=== PATIENT | female | born 1945 | race Caucasian/White ===

== ENCOUNTER 2016-09-11 11:49 | Day surgery (SDC) | payer MEDICARE ==
--- NOTE | 2016-09-07 17:52 | PCM.ANEPRE ---
Anesthesia Pre-Op Review Reason for Review: SURGEON'S REQUEST-AORTIC INSUFFICIENCY and MODERATE Anesthesia Recommendations: Proceed with Procedure Additional Comments 71 yo woman for with hx of (Moderate) and AR (moderately severe)on echo 2015, one year ago. EF 60-65%. Few symptoms of or AR, and METs >4 limited only by prior lung resection. Active. Ok to proceed for low risk case with usual DOS evaluation for any new symptoms. Chart Reviewed by: Joselito Lopez MD, MD Sep 07, 2016 17:52
[~2016-09-11] VITALS: Ht 160 cm; Wt 67.7 kg
[~2016-09-11 11:49] MED LIST: ASPI-973 PO; ATEN50TA PO; BUPR150T9 PO; CYAN25003 SL; Dexamethasone 4 mg/mL Inj IVPUSH PRN; EPHEDrine Sulfate 50 mg/mL Inj IVPUSH PRN; FLUT9.9S NS; FOLI0.4T2 PO; GEMF600T3 PO; HYDROmorphone 1 mg/mL Inj IVPUSH PRN; LEVO50TA6 PO; LOVA40TA PO; Labetalol 5 mg/mL 4 mL Inj IV PRN; Lactated Ringer's 1,000 ML IV ONE; Lactated Ringer's 1,000 ML IV SCH; Lactated Ringer's 500 ML IV PRN; MAGN400T23 PO; MetoCLOpramide 5 mg/mL 2 mL Inj IVPUSH PRN; Ondansetron 2 mg/mL 2 mL Inj IVPUSH PRN; Phenylephrine 10,000 mCg/mL Inj IVPUSH PRN; fentaNYL-PF 50 mCg/mL 2 mL Inj IVPUSH PRN; hydrALAZINE 20 mg/mL Inj IVPUSH PRN
[2016-09-11] MEDS ORDERED: Ondansetron 2 mg/mL 2 mL Inj ONE (11:50)
[2016-09-11] MEDS ORDERED: Propofol 10 mg/mL 20 mL Inj ONE (11:50)
[2016-09-11] MEDS ORDERED: Lidocaine PF 1% 30 mL Inj ONE (11:50)
[2016-09-11] MEDS ORDERED: Ketamine 10 mg/mL 20 mL Inj ONE (11:50)
[2016-09-11] MEDS ORDERED: EPHEDrine/NS 5 mg/mL 5 mL Syringe ONE (11:50)
[2016-09-11] MEDS ORDERED: fentaNYL-PF 50 mCg/mL 2 mL Inj ONE (11:50)
[2016-09-11 12:22] VITALS: BP 166/47; PULSE 60; RESP 16; O2SAT 99
[2016-09-11] MEDS ORDERED: CeFAZolin Inj 2 gm / 50mL D5W IV ONE (12:58)
[2016-09-11] MEDS ORDERED: Acetaminophen IV 1,000 MG in IV Premix 1 EACH IV ONE (13:02)
[2016-09-11] MEDS ORDERED: CeFAZolin Inj 2 GM in IV Premix 1 EACH IV ONE (13:05)
--- NOTE | 2016-09-11 14:26 | PCM.HPANE ---
Patient Data Date of Service: Sep 11, 2016 Surgeon Admitting Provider: Attending Provider:Kimberly Miller MD Primary Care Physician:Bret Perea MD Other Provider:Andrew Long Anesthesia Reason for Visit Hematuria Ht/WT & BMI Height (Feet): 5 Height (Inches): 3 Weight (Kilograms): 67.7 Body Mass Index 26.00 Allergies Coded Allergies: Penicillins (Verified Allergy, Unknown, UNKNOWN, 09/11/16) Past Anesthesia History Anesthesia History: Denies:: Anesthesia Reactions, Malignant Hyperthermia Diabetes History Hx Diabetes?: No MRSA MRSA: No Medications Blood Thinner: Aspirin Home Meds Incl Beta Miguel Ángel: No Reported Medications Fluticasone Propionate (Flonase Allergy Relief)50 Mcg/Actuation [place].susp9.9 Ml NS DAILY 09/07/16 Gemfibrozil 600 Mg Iefhhu359 Mg PO BID #60 TABLET 09/07/16 Aspirin 81 Mg [place]87 Mg PO DAILY Ref 0 09/07/16 Cyanocobalamin (Vitamin B-12) (Vitamin B-12)2,500 Mcg Tab.subl2,500 Mcg SL HS 07/15/15 Folic Acid 0.4 Mg Tablet0.4 Mg PO HS 07/15/15 Gemfibrozil 600 Mg Rmyxol655 Mg PO HS #60 TABLET 07/15/15 Levothyroxine 50 Mcg Btxpnr97 Mcg PO HS Ref 0 06/28/15 Magnesium Oxide (Mag-Oxide)400 Mg Ufsohj158 Mg PO HS 06/28/15 Lovastatin 40 Mg Hnfogn76 Mg PO HS Ref 0 06/28/15 Bupropion HCl (Zyban)150 Mg Tablet.er150 Mg PO HS 06/28/15 Atenolol 50 Mg Eyzmgh12 Mg PO HS Ref 0 06/28/15 Discontinued Reported Medications Ranitidine 150 Mg Vqxddol532 Mg PO HS Ref 0 07/15/15 Promethazine 25 Mg Rsqjjn81.5 Mg PO Q6H PRN For Nausea Ref 0 06/28/15 Ondansetron 8 Mg Tablet8 Mg PO TID PRN For Nausea 06/28/15 History History of ENT Problems?: Yes HEENT History: Positive for:: Cataracts (S/P EXTRACTIONS) Hx of Heart Problems?: Yes Cardiovascular History: Positive for:: Chest Pain (R/T DYSPNEA & PNEUMONIA) Heart Murmur (GR I-II/ SYST;GR III/ FLOW @ [facility] ECHO 08/2015 EF 60-65%) Hypertension (HYPERLIPIDEMIA) Valvular Heart Disease (MOD /AR) Denies:: Cardiac Surgery Congestive Heart Failure Edema Irregular Heartbeat (REPORTS PALPITATIONS) Pacemaker Thrombophlebitis Hx of Respiratory Problem?: Yes Respiratory History: Positive for:: Dyspnea (INTERMITTANT SOTO) Pneumonia (HX OF) Denies:: Chest Surgery (DX W/ LUNG CA-RECEIVED CHEMO) Use of C-PAP Machine Hx Neurologic Problems?: No Hx of GI Problems?: Yes Gastrointestinal History: Positive for:: Gall Bladder Disease (S/P CORAL) Gastroesphageal Reflux Heartburn Other GI Pertinent History: S/P APPY Hx of Problems?: Yes Genitourinary History: Denies:: HX of Hemodialysis (CHRONIC RENAL INSUFFICIENCY, STAGE 3) Other Pertinent History: HEMATURIA=CURRENT PROBLEM Female Hx: Denies:: Currently Endometriosis Pelvic Inflammatory Problems with Breasts? Skin History: Positive for:: History Skin Disorders? (HX ROSACEA) Denies:: Pressure Ulcers Hx Musculoskeletal Problems?: No Hx of Psycho/Social Problems?: Yes Psycho Social History: Positive for:: Anxiety Hx Depression Denies:: Bipolar Disorder Hx Surgeries?: Yes (coral, hysterectomy,APPY,CATARACTS) Hx Any Other Health Problems?: Yes Other History: Positive for:: Cancer (LUNG CA) Thyroid Disease Denies:: Endocrine Disease Hospitalization History Blood Transfusions: Positive for:: Blood Transfusions Denies:: Blood Transfuse Reaction Hx Diabetes: No Hx Alcohol Use: No (HX OF BINGE DRINKING)Hx Substance Use: No Smoking Status: Former Smoker Have You Smoked inLast 12 mo: YesApprox How Many Cigarettes/day: 30+YR HX Stop/Bang S-Snoring: Do You Snore Loudly: No T-Tired: feel tired, fatigued: No O-Obsered: Observed not breath: No P-Blood Pressure: treated: Yes B- Body Mass Index > 35 kg/m2: No A- Age over 50: Yes N- Neck Large Circumference: No G- Gender Male: No RODOLFO Total Score: 2 RODOLFO Risk Assessment: Low Risk, <3 Yes Risk Assessment Category Category 1A: Patient has history of documented sleep apnea, and HAS NOT received any narcotic, sedative or anesthesia administration during this stay. Category 1B: Patient has history of documented sleep apnea, and HAS received any narcotic , sedative or anesthesia administration during this stay Category 2: Patient has SUSPECTED Obstructive Sleep Apnea, and HAS received any narcotic , sedative or anesthesia administration during this stay. Category 3: Patient has SUSPECTED Obstructive Sleep Apnea and HAS NOT received narcotic, sedative or anesthesia administration during this stay. Category 4: Outpatient in Procedural Areas with known sleep apnea or who screen positive for High Risk via the STOP/BANG questionnaire. Exam Exam Vital Signs Vital Signs Date Time Temp Pulse Resp B/P Pulse Ox O2 Delivery O2 Flow Rate FiO2 09/11/16 12:22 35.8 60 16 166/47 99 Room Air General Appearance: Alert, Oriented X3, Cooperative, No Acute Distress HEENT/AIRWAY: MP 2 Lungs: Clear to Auscultation, Normal Air Movement Heart: Regular Rate/Rhythm, Murmur Additional Information Moderate and moderate to severe AI, denies CP or SOB Meds/Labs/Diagnostics Admission Meds Current Medications Lactated Ringer's (Lr) 1,000 ml @ 120 mls/hr Q8H20M ONCE IV Last administered on 09/11/16t 11:54; Start 09/11/16 at 05:00; Stop 09/11/16 at 13:19; Status DC Plan Impression Patient chart reviewed, patient interviewed and anesthestic plan with risks, benefits, and alternatives discussed, and informed consent obtained. NPO Status: MIDNIGHT ASA Physical Status: ASA3 Severe Disease Anesthetic Plan: GA Bene/Risks/Altern/Consents: Yes HP Complete Prior to Induction: Yes Ranulfo Flaherty MD Sep 11, 2016 14:26
[2016-09-11 14:50] VITALS: BP 109/47; PULSE 64; RESP 10; O2SAT 95
[2016-09-11 14:55] VITALS: BP 111/45; PULSE 61; RESP 12; O2SAT 95
--- NOTE | 2016-09-11 14:57 | DRSVH ---
PROCEDURE: X-RAY RETROGRADE UROGRAPHY INDICATIONS: LEFT RETROGRADE PYELOGRAM IN SURGERY TECHNIQUE: 2 intra-operative images acquired by the Urology service. COMPARISON: [facility], CT, CT CHEST WO CON, 05/02/2016, 11:54. [facility], CT, CT CHEST ABD PELVIS WO CON, 10/14/2015, 13:33. FINDINGS: Limited examination demonstrates opacification of the left renal collecting system with a minimal degree of hydronephrosis. No intraluminal filling defects are seen. No extravasation. IMPRESSION: Intraoperative opacification of the left renal collecting system with hydronephrosis. Dictated by: Ray SAUCEDO Interpreted: Dottie Jaime MD on 09/11/2016 at 14:56 Transcribed by: IVELISSE on 09/11/2016 at 14:57 Approved by: Dottie Jaime M.D. on 09/12/2016 at 10:43
[2016-09-11 15:00] VITALS: BP 108/48; PULSE 61; RESP 14; O2SAT 95
--- NOTE | 2016-09-11 15:03 | DRSVH ---
PROCEDURE: X-RAY RETROGRADE UROGRAPHY INDICATIONS: RIGHT RETROGRADE PYELOGRAM IN SURGERY TECHNIQUE: 2 intra-operative images acquired by the Urology service. COMPARISON: None. FINDINGS: Limited exam demonstrates incomplete filling of the distal aspects of the renal calyces ot herwise the right renal collecting system is grossly normal. There is a small rounded intraluminal f illing defect seen within the renal pelvis which may represent gas bubble. Correlate with real-time examination. Visualized portion of the proximal ureter appears grossly normal. IMPRESSION: Small intraluminal filling defect within the renal pelvis which may represent a small gas bubble. Correlate with real-time examination. Dictated by: Ray Zamudio [facility] Interpreted: Tabby Huitron MD on 09/11/2016 at 15:02 Transcribed by: SETH on 09/11/2016 at 15:03 Approved by: Tabby Huitron MD, PhD on 09/11/2016 at 18:06
[2016-09-11 15:12] VITALS: BP 113/44; PULSE 60; RESP 16; O2SAT 95
[2016-09-11 15:32] VITALS: BP 128/43; PULSE 61; RESP 16; O2SAT 95
--- NOTE | 2016-09-11 21:11 | OP ---
[address] [address] OPERATIVE REPORT PATIENT: ZANA BISWAS : 1945 MR#: [id number] ADMIT: 09/11/2016 JOB ID: [id number] DATE OF SURGERY: 09/11/2016 SURGEON: Kimberly Miller MD PREOPERATIVE DIAGNOSIS(ES): 1. Microscopic hematuria. 2. Chronic kidney disease POSTOPERATIVE DIAGNOSIS(ES): 1. Microscopic hematuria. 2. Chronic kidney disease OPERATION PERFORMED: 1. Cystoscopy. 2. Bilateral retrograde pyelograms. ANESTHESIOLOGIST: Eusebio Flaherty MD ANESTHESIA: General. FINDINGS: Urethra normal. Bladder urothelium normal throughout. Orifices in normal position bilaterally. Clear efflux of urine. No stone, tumor, foreign body visualized. Bilateral retrograde pyelogram revealed normal delicate calices and infundibula of both kidneys. No filling defect or hydronephrosis. PROCEDURE SUMMARY: The patient was positioned supine and was administered general anesthesia. She was then repositioned in semi lithotomy and the lower abdomen, genitalia, and groin were prepped and draped in sterile fashion. The 22-[place] panendoscope was then passed to the lower urinary tract and using a 5-[place] whistle-tip catheter, bilateral retrograde pyelography was performed with the findings as described above. Next, the bladder was drained completely and all instrumentation removed. The patient was then repositioned supine, awakened, transferred to [facility], and transferred to recovery awake and in stable condition.
--- NOTE | 2016-09-12 19:34 | PCM.ANEP1 ---
Post Anesthesia Phase 1 PACU Phase 1 Assessment Date of Service: Sep 11, 2016 Anesthetic Administered: GA Level of Alertness: Awake, talking POSADA's with Equal Strength: No Pain: No Nausea or Vomiting: No Oxygen Delivery: Room Air Lungs: Clear to Auscultation, Normal Air Movement Ranulfo Flaherty MD Sep 12, 2016 19:34
--- NOTE | 2016-09-12 19:35 | PCM.ANEP2 ---
Post Anesthesia Evaluation ASA/CMS Post Anesthesia VS in Patient's Normal Range?: Yes Resp Stable; Airway Patent?: Yes CV Function & Hydration Stable: Yes Mental Status Recovered?: Yes Pain control Satisfactory?: Yes N/V Control Satisfactory?: Yes Ranulfo Flaherty MD Sep 12, 2016 19:35
== END 2016-09-11 23:59 | disposition home or self-care (01) ==
LOC: SAS 11:49
PROVIDERS: ATTEND Specialist
DX: R31.29 Other microscopic hematuria (principal); N18.3 Chronic kidney disease, stage 3 (moderate); D63.1 Anemia in chronic kidney disease; I12.9 Hypertensive chronic kidney disease with stage 1 through stage 4 chronic kidney disease, or unspecified chronic kidney disease; E03.9 Hypothyroidism, unspecified; N25.0 Renal osteodystrophy; N39.3 Stress incontinence (female) (male); C34.12 Malignant neoplasm of upper lobe, left bronchus or lung; I35.1 Nonrheumatic aortic (valve) insufficiency; Z87.891 Personal history of nicotine dependence; Z92.21 Personal history of antineoplastic chemotherapy; Z79.82 Long term (current) use of aspirin
CPT/HCPCS: 52000; 74420; J0690; J2250; J2405; J3010; J7120; Q9967